=== PATIENT | male | born 1990 | race Two or more races ===

== ENCOUNTER 2020-09-26 19:23 | Emergency (ER) | payer OTHER ==
[~2020-09-26] VITALS: Ht 165.1 cm; Wt 61.0 kg
[2020-09-26 19:30] VITALS: BP 130/73
[2020-09-26] MEDS ORDERED: DIPH,PERTUSS(ACELL),TET VAC/PF 0.5 ML SYRINGE. VAX IM ONE (20:00)
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
[2020-09-26] MEDS ORDERED: HYDROcodone/APAP 5/325MG 1 TAB TABLET PO ONE (20:30)
[2020-09-26] MEDS ORDERED: silver sulfADIAZINE 1% CREAM 25GM TUBE. TP ONE (20:30)
[2020-09-26] MEDS ORDERED: HYDR-3164 PO (20:43)
[2020-09-26] MEDS ORDERED: SILV20CR14 TP (20:43)
--- NOTE | 2020-09-26 21:17 | RAD ---
Examination: 3 views of the right ankle HISTORY: History of fall, pain COMPARISON: None available FINDINGS: The alignment of the ankle mortise grossly appears unremarkable. There is no acute fracture or dislocation identified. Mild soft tissue stranding identified about the ankle mortise. IMPRESSION: No acute osseous findings. Electronically signed by: Keegan Monzon MD (09/26/2020 9:15 PM) [id number]
== END 2020-09-26 20:45 | disposition home or self-care (01) ==
LOC: ER 19:23
DX: T25.211A Burn of second degree of right ankle, initial encounter (principal); S93.401A Sprain of unspecified ligament of right ankle, initial encounter; W01.0XXA Fall on same level from slipping, tripping and stumbling without subsequent striking against object, initial encounter; X19.XXXA Contact with other heat and hot substances, initial encounter; Y93.89 Activity, other specified; Y92.69 Other specified industrial and construction area as the place of occurrence of the external cause; Y99.0 Civilian activity done for income or pay
CPT/HCPCS: 16000; 73610; 90471; 90715; 99283; 99284

== ENCOUNTER 2020-11-05 11:36 | Inpatient (IN) | payer OTHER ==
[~2020-11-05] VITALS: Ht 152.4 cm; Wt 62.1 kg
[~2020-11-05 11:36] MED LIST: HYDR-3164 PO; SILV20CR14 TP
[2020-11-05] MEDS ORDERED: VANCOMYCIN PER PHARMACY MC PRN (12:30)
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
[2020-11-05] MEDS ORDERED: fentaNYL PF VIAL 100 MCG/2 ML VIAL IVP ONE (12:45)
[2020-11-05] MEDS ORDERED: VANCOMYCIN 1.5 GM in IV NORMAL SALINE 500ML BAG 500 ML IV ONE (13:00)
--- NOTE | 2020-11-05 13:09 | RAD ---
3 view study of the right ankle Clinical indications: Infected burn around the ankle. FINDINGS: There is circumferential soft tissue irregularity around the right ankle. Soft tissue air i s apparent especially within the lateral aspect extending towards the right hindfoot. In the lateral view, there is a round density measuring 3.1 cm. This could represent an overlying bandage. No metall ic foreign body is seen. Diffuse mild osteopenia is seen related to disuse. No focal lytic process is seen. No acute fracture or dislocation is evident. The mortise ankle joint is intact. Small plantar spur of the calcaneus is seen. IMPRESSION: No acute fracture. Soft tissue abnormality as discussed above. Soft tissue air may be secondary to open wound/laceration injury or could be seen with soft tissue infection with gas-forming organisms. Electronically signed by: Tyron Dubois MD (11/05/2020 1:00 PM) [id number]
[2020-11-05] MEDS ORDERED: PIPERACILLIN/TAZOBACTAM 3.375 GM in IV NORMAL SALINE 50ML 50 ML IV ONE (13:15)
[2020-11-05] MEDS ORDERED: CLINDAMYCIN 600MG PREMIX 50 ML IV ONE (13:15)
[2020-11-05 13:18] LABS: BASO # 0.1 x10^3/uL (0.0-0.2); BASO % 1 % (0-3); EOS # 0.3 x10^3/uL (0.0-0.7); EOS % 5 % (0-3); HEMATOCRIT 38.9 % (39.0-53.0); HEMOGLOBIN 13.2 g/dL (13.0-17.5); LYMPH # 1.8 x10^3/uL (1.0-4.8); LYMPH % 29 % (24-48); MEAN CORPUSCULAR HEMOGLOBIN 31 pg (25-35); MEAN CORPUSCULAR HGB CONC 34 g/dL (31-37); MEAN CORPUSCULAR VOLUME 90 fL (79-100); MONO # 0.6 x10^3/uL (0.0-1.1); MONO % 9 % (0-9); NEUT # 3.6 x10^3/uL (1.8-7.7); NEUT % 56 % (31-73); PLATELET COUNT 356 x10^3/uL (140-400); RED BLOOD COUNT 4.32 x10^6/uL (4.30-5.70); RED CELL DISTRIBUTION WIDTH 12.4 % (11.5-14.5); WHITE BLOOD COUNT 6.4 x10^3/uL (4.0-11.0)
[2020-11-05 13:36] LABS: CREATININE 0.9 mg/dL (0.7-1.3); GFR 98.4; POTASSIUM 3.8 mmol/L (3.5-5.1)
[2020-11-05 13:38] LABS: ALBUMIN 3.9 g/dL (3.4-5.0); ALBUMIN/GLOBULIN RATIO 1.1 (1.0-1.7); TOTAL BILIRUBIN 0.4 mg/dL (0.2-1.0); TOTAL PROTEIN 7.4 g/dL (6.4-8.2)
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
[2020-11-05] MEDS ORDERED: ONDANSETRON PF 4 MG/2 ML VIAL. IV PRN ×2 (15:00→15:45)
--- NOTE | 2020-11-05 15:29 | PDOC2 ---
CONSULT Date of Consult Date of Consult DATE: 11/05/20 TIME: 15:27 Reason for Consult Reason for Consult: left ankle infected burn wound, need debridement Identification/Chief Complaint Chief Complaint left ankle infected burn wound Source Source: Chart review, Patient History of Present Illness Reason for Visit: Mr Delcid is a 30 year old admitted last night from the ED c/o right ankle pain and swelling with foul smelling drainage. He burned his leg on approximately 09/26/2020, when he fell off a ladder and burned his right ankle on a heater. Since that time, he did get a tetanus shot on the time; had received some antibiotics and Silvadene, but according the ER provider was noncompliant with recommended followup. Over the last few days, it had been getting somewhat better. However, he was instructed by his work to come get it evaluated since he is still off work at this time. He has not been having any fever, chills or sweats. No nausea or vomiting. No diarrhea. He presented to [facility], placed on vancomycin and Zosyn. White count has been normal. X-ray shows some soft tissue abnormality with some air, what may be secondary to open wound or laceration. Currently, he is lying in bed. He is comfortable. Orthopedics was consulted for the infected ankle wound with possible gas on x-ray. Past Surgical History Past Surgical History: Hernia Repair Family History Family History: High Cholestrol, Hypertension Social History No ALCOHOL: none Current Problem List Problem List Problems Medical Problems: (1) Wound infection Status: Acute Current Medications Current Medications Current Medications Vancomycin HCl (Vanco Per Pharmacy) 1 each PRN DAILY PRN MC SEE COMMENTS; Sta rt 11/05/20 at 12:30; Status UNV Fentanyl Citrate (Fentanyl 2ml Vial) 50 mcg 1X ONCE IVP Last administered on 11/05/20at 12:45; Start 11/05/20 at 12:45; Stop 11/05/20 at 12:46; Status DC Vancomycin HCl 1.5 gm/Sodium Chloride 500 ml @ 250 mls/hr 1X ONCE IV Last administered on 11/05/20at 12:54; Start 11/05/20 at 13:00; Stop 11/05/20 at 14:59; Status DC Piperacillin Sod/ Tazobactam Sod 3.375 gm/Sodium Chloride 50 ml @ 100 mls/hr 1X ONCE IV ; Start 11/05/20 at 13:15; Stop 11/05/20 at 13:44; Status DC Clindamycin Phosphate 50 ml @ 100 mls/hr 1X ONCE IV ; Start 11/05/20 at 13:15; Stop 11/05/20 at 13:44; Status DC Ondansetron HCl (Zofran) 4 mg PRN Q8HRS PRN IV NAUSEA/VOMITING; Start 11/05/20 at 15:00; Stop 11/06/20 at 14:59 Fentanyl Citrate (Fentanyl 2ml Vial) 50 mcg PRN Q1HR PRN IV PAIN; Start 11/05/20 at 15:00; Stop 11/06/20 at 14:59 Active Scripts Active [place] 5-325 Tablet (Acetaminophen/Hydrocodone Bitart) 1 Each Tablet 0.5-1 Tab PO PRN Q6HRS PRN Silvadene (Silver Sulfadiazine) 20 Gm Cream..g. 1 Ricardo TP BID 7 Days apply to affected area(s) Allergies Allergies: Coded Allergies: No Known Drug Allergies (Unverified , 09/26/20) Vitals VITALS Vital Signs Date Time Temp Pulse Resp B/P (MAP) Pulse Ox O2 Delivery O2 Flow Rate FiO2 11/05/20 12:45 18 97 Room Air 11/05/20 11:56 98.7 76 135/78 (97) 98.7 Labs Labs Laboratory Tests Test 11/05/20 12:50 White Blood Count 6.4 x10^3/uL (4.0-11.0) Red Blood Count 4.32 x10^6/uL (4.30-5.70) Hemoglobin 13.2 g/dL (13.0-17.5) Hematocrit 38.9 % (39.0-53.0) Mean Corpuscular Volume 90 fL (79-100) Mean Corpuscular Hemoglobin 31 pg (25-35) Mean Corpuscular Hemoglobin Concent 34 g/dL (31-37) Red Cell Distribution Width 12.4 % (11.5-14.5) Platelet Count 356 x10^3/uL (140-400) Neutrophils (%) (Auto) 56 % (31-73) Lymphocytes (%) (Auto) 29 % (24-48) Monocytes (%) (Auto) 9 % (0-9) Eosinophils (%) (Auto) 5 % (0-3) Basophils (%) (Auto) 1 % (0-3) Neutrophils # (Auto) 3.6 x10^3/uL (1.8-7.7) Lymphocytes # (Auto) 1.8 x10^3/uL (1.0-4.8) Monocytes # (Auto) 0.6 x10^3/uL (0.0-1.1) Eosinophils # (Auto) 0.3 x10^3/uL (0.0-0.7) Basophils # (Auto) 0.1 x10^3/uL (0.0-0.2) Sodium Level 139 mmol/L (136-145) Potassium Level 3.8 mmol/L (3.5-5.1) Chloride Level 102 mmol/L (98-107) Carbon Dioxide Level 29 mmol/L (21-32) Anion Gap 8 (6-14) Blood Urea Nitrogen 18 mg/dL (8-26) Creatinine 0.9 mg/dL (0.7-1.3) Estimated GFR (Cockcroft-Gault) 98.4 BUN/Creatinine Ratio 20 (6-20) Glucose Level 113 mg/dL (70-99) Lactic Acid Level 1.6 mmol/L (0.4-2.0) Calcium Level 9.0 mg/dL (8.5-10.1) Total Bilirubin 0.4 mg/dL (0.2-1.0) Aspartate Amino Transf (AST/SGOT) 35 U/L (15-37) Alanine Aminotransferase (ALT/SGPT) 77 U/L (16-63) Alkaline Phosphatase 164 U/L (46-116) Total Protein 7.4 g/dL (6.4-8.2) Albumin 3.9 g/dL (3.4-5.0) Albumin/Globulin Ratio 1.1 (1.0-1.7) Laboratory Tests Test 11/05/20 12:50 White Blood Count 6.4 x10^3/uL (4.0-11.0) Red Blood Count 4.32 x10^6/uL (4.30-5.70) Hemoglobin 13.2 g/dL (13.0-17.5) Hematocrit 38.9 % (39.0-53.0) Mean Corpuscular Volume 90 fL (79-100) Mean Corpuscular Hemoglobin 31 pg (25-35) Mean Corpuscular Hemoglobin Concent 34 g/dL (31-37) Red Cell Distribution Width 12.4 % (11.5-14.5) Platelet Count 356 x10^3/uL (140-400) Neutrophils (%) (Auto) 56 % (31-73) Lymphocytes (%) (Auto) 29 % (24-48) Monocytes (%) (Auto) 9 % (0-9) Eosinophils (%) (Auto) 5 % (0-3) Basophils (%) (Auto) 1 % (0-3) Neutrophils # (Auto) 3.6 x10^3/uL (1.8-7.7) Lymphocytes # (Auto) 1.8 x10^3/uL (1.0-4.8) Monocytes # (Auto) 0.6 x10^3/uL (0.0-1.1) Eosinophils # (Auto) 0.3 x10^3/uL (0.0-0.7) Basophils # (Auto) 0.1 x10^3/uL (0.0-0.2) Sodium Level 139 mmol/L (136-145) Potassium Level 3.8 mmol/L (3.5-5.1) Chloride Level 102 mmol/L (98-107) Carbon Dioxide Level 29 mmol/L (21-32) Anion Gap 8 (6-14) Blood Urea Nitrogen 18 mg/dL (8-26) Creatinine 0.9 mg/dL (0.7-1.3) Estimated GFR (Cockcroft-Gault) 98.4 BUN/Creatinine Ratio 20 (6-20) Glucose Level 113 mg/dL (70-99) Lactic Acid Level 1.6 mmol/L (0.4-2.0) Calcium Level 9.0 mg/dL (8.5-10.1) Total Bilirubin 0.4 mg/dL (0.2-1.0) Aspartate Amino Transf (AST/SGOT) 35 U/L (15-37) Alanine Aminotransferase (ALT/SGPT) 77 U/L (16-63) Alkaline Phosphatase 164 U/L (46-116) Total Protein 7.4 g/dL (6.4-8.2) Albumin 3.9 g/dL (3.4-5.0) Albumin/Globulin Ratio 1.1 (1.0-1.7) Images Images report reviewed, images independently reviewed PATIENT: ANASTASIA NEWMANUNT: [id number] : 1990 LOCATION: ER AGE: 30 SEX: M EXAM STATUS: REG ER ORD. PHYSICIAN: GABO ANGELA APRN REASON: infected burn around the ankle PROCEDURE: ANKLE RIGHT 3V 3 view study of the right ankle Clinical indications: Infected burn around the ankle. FINDINGS: There is circumferential soft tissue irregularity around the right ankle. Soft tissue air is apparent especially within the lateral aspect extending towards the right hindfoot. In the lateral view, there is a round density measuring 3.1 cm. This could represent an overlying bandage. No metallic foreign body is seen. Diffuse mild osteopenia is seen related to disuse. No focal lytic process is seen. No acute fracture or dislocation is evident. The mortise ankle joint is intact. Small plantar spur of the calcaneus is seen. IMPRESSION: No acute fracture. Soft tissue abnormality as discussed above. Soft tissue air may be secondary to open wound/laceration injury or could be seen with soft tissue infection with gas-forming organisms. Electronically signed by: Bree Dubois MD (11/05/2020 1:00 PM) [id number] DICTATED and SIGNED BY: BREE DUBOIS MD DATE: 11/05/20 [id number] Assessment/Plan Assessment/Plan Planning surgical irrigation and debridement in the operating room on 11/06/2020. N.p.o. after midnight. The patient has apparent infected eschar at the areas of the burn wounds. On examination I do not sense that there is any deep abscess. I think the gas bubbles seen on x-ray are probably within the infected eschar. He has good sensation distally and reasonable active range of motion within the limits of the painful eschar without evidence of a deep process. I believe a superficial debridement of the burn eschar which does now appear somewhat infected would be useful, but I do not sense that he needs a deep incision at this time. I can reassess that once we have removed to the foul-smelling infected eschar. I spoke to him about debridement via dictaphone transcriber, removing the infected and nonviable tissue. He agrees to proceed. JACKLYN RESENDIZ MD Nov 05, 2020 15:29
--- NOTE | 2020-11-05 17:58 | NUR ---
Pharmacy Vancomycin Dosing Note S:Consulted to monitor and dose vancomycin started 11/05/20. O:YARED NEWMAN is a 30 year old M with Cellulitis. Height: 5 feet, 3 inches Weight: 59.0 kg [place] Body Weight: 56.90 Adjusted Body Weight: 57.74 Dosing Weight: Actual Other Antibiotics: LABS: Last BUN: 18 Last Creatinine: 0.9 Creatinine Clearance: 97 mL/min Last WBC: 6.4 Tmax (past 24 hours): 98.7 I/O: -- Last dose given 11/05/20 at 1254 Vancomycin Dosing: Loading Dose: 1500 mg x1 Dosing Weight: Actual Target Trough: 10-20 A: Based on: patient's age, weight and renal function. P: 1. Begin Vancomycin 1000 mg IV q12h after initial loading dose. 2. Follow up Trough level on 11/06/20 at 2230 3. Pharmacy will continue to monitor, follow and adjust therapy as needed. THERESA WHITT RPH, 11/05/20 1533
[2020-11-05 19:15] VITALS: BP 121/74
--- NOTE | 2020-11-05 19:33 | NUR ---
Per day shift RN, pt.' arrived on unit at 1800. Pt. is alert and within the company of 2 friends during shift change. Pt. does complain of discomfort in his right foot. Call light is within reach with bed in lowest position. Will continue to monitor.
[2020-11-05] MEDS: fentaNYL PF VIAL 100 MCG/2 ML VIAL IV PRN (19:35)
[2020-11-05] MEDS ORDERED: traMADol 50 MG TABLET PO PRN (20:45)
[2020-11-05] MEDS ORDERED: ACETAMINOPHEN 325 MG TABLET. PO PRN (20:45)
[2020-11-05] MEDS ORDERED: ZOLPIDEM 5 MG TABLET. PO PRN (20:45)
[2020-11-05 23:00] VITALS: BP 106/61
[2020-11-05] MEDS ORDERED: VANCOMYCIN 1 GM in IV NORMAL SALINE 250ML 250 ML IV SCH (23:00)
[2020-11-06] VITALS (11 sets, daily range): BP systolic 94–115; BP diastolic 48–65
[2020-11-06] MEDS: PIPERACILLIN/TAZOBACTAM 3.375 GM in IV NORMAL SALINE 50ML 50 ML IV SCH ×4 (01:38→18:05)
--- NOTE | 2020-11-06 08:15 | PDOC ---
Infectious Disease Note Vital Sign Vital Signs Vital Signs Date Time Temp Pulse Resp B/P (MAP) Pulse Ox O2 Delivery O2 Flow Rate FiO2 11/06/20 07:27 97.7 75 18 111/56 (74) 96 Room Air 97.7 Labs Lab Laboratory Tests Test 11/05/20 12:50 11/05/20 15:25 White Blood Count 6.4 x10^3/uL (4.0-11.0) Red Blood Count 4.32 x10^6/uL (4.30-5.70) Hemoglobin 13.2 g/dL (13.0-17.5) Hematocrit 38.9 % (39.0-53.0) Mean Corpuscular Volume 90 fL (79-100) Mean Corpuscular Hemoglobin 31 pg (25-35) Mean Corpuscular Hemoglobin Concent 34 g/dL (31-37) Red Cell Distribution Width 12.4 % (11.5-14.5) Platelet Count 356 x10^3/uL (140-400) Neutrophils (%) (Auto) 56 % (31-73) Lymphocytes (%) (Auto) 29 % (24-48) Monocytes (%) (Auto) 9 % (0-9) Eosinophils (%) (Auto) 5 % (0-3) Basophils (%) (Auto) 1 % (0-3) Neutrophils # (Auto) 3.6 x10^3/uL (1.8-7.7) Lymphocytes # (Auto) 1.8 x10^3/uL (1.0-4.8) Monocytes # (Auto) 0.6 x10^3/uL (0.0-1.1) Eosinophils # (Auto) 0.3 x10^3/uL (0.0-0.7) Basophils # (Auto) 0.1 x10^3/uL (0.0-0.2) Sodium Level 139 mmol/L (136-145) Potassium Level 3.8 mmol/L (3.5-5.1) Chloride Level 102 mmol/L (98-107) Carbon Dioxide Level 29 mmol/L (21-32) Anion Gap 8 (6-14) Blood Urea Nitrogen 18 mg/dL (8-26) Creatinine 0.9 mg/dL (0.7-1.3) Estimated GFR (Cockcroft-Gault) 98.4 BUN/Creatinine Ratio 20 (6-20) Glucose Level 113 mg/dL (70-99) Lactic Acid Level 1.6 mmol/L (0.4-2.0) Calcium Level 9.0 mg/dL (8.5-10.1) Total Bilirubin 0.4 mg/dL (0.2-1.0) Aspartate Amino Transf (AST/SGOT) 35 U/L (15-37) Alanine Aminotransferase (ALT/SGPT) 77 U/L (16-63) Alkaline Phosphatase 164 U/L (46-116) Total Protein 7.4 g/dL (6.4-8.2) Albumin 3.9 g/dL (3.4-5.0) Albumin/Globulin Ratio 1.1 (1.0-1.7) SARS-CoV-2 Antigen (Rapid) Negative (NEGATIVE) Objective Assessment Right ankle wound h/o burn to ankle Previous tobacco use H/o ETOH abuse Plan Plan of Care Cont Zosyn D/c Vanc Po Zyvox Await Ortho eval F/u labs and cults Local wound care Thank you D/w nursing # [id number] EDIL AGUILAR MD Nov 06, 2020 08:15
--- NOTE | 2020-11-06 08:29 | CONS ---
DATE OF CONSULTATION: 11/06/2020 ROOM: 416. REQUESTING PHYSICIAN: Kirt Small MD REASON FOR CONSULTATION: Leg abscess. HISTORY OF PRESENT ILLNESS: The patient is a pleasant 30-year-old gentleman, who on approximately 09/26/2020, fell off a ladder and burned his right ankle on a heater. Since that time, he did get a tetanus shot on the time; had received some antibiotics. Over the last few days, it had been getting somewhat better. However, he was instructed by his work to come get it evaluated since he is still off work at this time. He has not been having any fever, chills or sweats. No nausea or vomiting. No diarrhea. He presented to [facility], placed on vancomycin and Zosyn. White count has been normal. X-ray shows some soft tissue abnormality with some air, what may be secondary to open wound or laceration. Currently, he is lying in bed. He is comfortable. PAST MEDICAL HISTORY: Positive for the above-mentioned burn. PAST SURGICAL HISTORY: Positive for hernia repair. REVIEW OF SYSTEMS: Otherwise negative. ALLERGIES: No known antibiotic allergies. SOCIAL HISTORY: He states he has not smoked or had any alcohol since he fell off the ladder and burned his ankle. FAMILY HISTORY: Positive for hypertension and hypercholesterolemia. CURRENT MEDICATIONS: Include vancomycin and Zosyn. He did receive clindamycin x 1 and other p.r.n. medications, including fentanyl and Zofran. PHYSICAL EXAMINATION: VITAL SIGNS: Afebrile, temperature is 97.7, pulse 75, respirations 18, blood pressure 111/56. CONSTITUTIONAL: He is lying in bed. He is cooperative, in no acute distress. HEENT: Pupils equal and reactive. Normal conjunctivae. Oral cavity: Pharynx is clear. NECK: Supple. Good range of motion. LUNGS: Clear to auscultation bilaterally. HEART: S1, S2. ABDOMEN: Nontender. No guarding. No rebound. EXTREMITIES: Without clubbing or cyanosis. SKIN: Warm to touch without signs of generalized rash. He has got bilateral scattered lesions on the medial and lateral aspect of his ankle on the right side. He does have good pulses there and there is no gross erythema. There is no warmth. There is no tracking. NEUROLOGIC: He is nonfocal. PSYCHIATRIC: Affect is appropriate. LABORATORY VALUES: White count 6.4, hemoglobin 13.2, platelets of 356, neutrophils 56, lymphs 29. Glucose 113. Lactic acid 1.6. Creatinine 0.9. AST 35, ALT 77, alk phos 164. COVID test was negative. RADIOLOGY: Reviewed in history of present illness. IMPRESSION: 1. Right ankle wound. 2. History of burn to the right ankle. 3. Previous tobacco use. 4. History of alcohol use. RECOMMENDATIONS: Continue Zosyn. Discontinue the vancomycin; begin p.o. Zyvox. Discontinue the tramadol. Await Ortho evaluation. Follow up labs, cultures and local wound care. This was discussed with nursing. Thank you for allowing me to participate in the patient's care. Should you have further questions, please do not hesitate to contact me. EDIL AGUILAR MD DR: DOUG/kulwant JOB#: [id number] / [id number]
[2020-11-06] MEDS: LINEZOLID 600 MG TABLET PO SCH ×2 (09:00→20:52)
[2020-11-06 09:08] LABS: CREATININE 1.1 mg/dL (0.7-1.3); GFR 78.1
[2020-11-06] MEDS: fentaNYL PF VIAL 100 MCG/2 ML VIAL IV PRN ×4 (09:35→13:06)
[2020-11-06] MEDS ORDERED: LIDOCAINE 1% PF 2 ML VIAL. ID PRN (11:15)
[2020-11-06] MEDS ORDERED: fentaNYL PF VIAL 100 MCG/2 ML VIAL IV PRN (11:15)
[2020-11-06] MEDS ORDERED: PROCHLORPERAZINE 10 MG/2 ML VIAL. IV PRN (11:15)
[2020-11-06] MEDS ORDERED: IV RINGERS,LACTATED 1000ML 1,000 ML IV SCH (11:15)
[2020-11-06] MEDS ORDERED: HYDROmorphone 2 MG/ML VIAL IV PRN (11:15)
[2020-11-06] MEDS ORDERED: MORPHINE SULFATE 2 MG/ML VIAL. IV PRN (11:15)
[2020-11-06] MEDS ORDERED: ONDANSETRON PF 4 MG/2 ML VIAL. IV PRN (11:15)
[2020-11-06] MEDS ORDERED: fentaNYL PF VIAL 100 MCG/2 ML VIAL ONE ×3 (11:27→12:45)
[2020-11-06] MEDS ORDERED: BUPIVACAINE-EPI 0.25%-1:200000 MPF 30 ML VIAL. INJ ONE (11:45)
--- NOTE | 2020-11-06 16:23 | PDOC4 ---
Operative Note Operative Note Date of Procedure: November 06, 2020 Pre-Op Diagnosis: Burn of second degree of right ankle, initial encounter T25.A Post-Op Diagnosis: Burn of second degree of right ankle, initial encounter T25.A Procedure: Right ankle debridement of partial-thickness horn, less than 5% total body surface area CPT 39250 Surgeon: Jacklyn Rg MD Anesthesia: General EBL: 10 mL Specimens Obtained: none Complications: none Drains: none Findings: High-grade partial-thickness tissue loss, underlying dermis seems to be intact. Some superficial infected eschar is present but there is no apparent deep infection. Areas of debridement include 7 x 6 cm of the lateral ankle, 6 x 6 cm of the medial ankle, and a 2 cm x 4 cm area of the posterior ankle. No palpable abscess. Indications for Procedure: This patient had an ankle burn at work. He was given Silvadene and instructions for follow-up but apparently was noncompliant. He returned to the emergency room last night with reports of infected ankle wounds. There appears to be superficial infection of the eschar, and need for debridement of the burn wounds in order for healing to occur. I recommended surgical debridement and we discussed the need for ongoing care as well as the risks of ongoing infection or scarring. All of his questions about surgery were answered via a telephone pure culture operator, and he desired to proceed. A written consent was obtained. Procedure in detail: The patient was identified in the preoperative holding area. The correct right ankle was marked by me. He was taken to the operating room where a general anesthetic was used. He remains on scheduled IV antibiotics. No tourniquet was used. The limb was thoroughly circumferentially prepared with Betadine. Sterile drapes were applied. Rongeurs and curettes were used to remove superficial eschar. The underlying dermis is intact but somewhat bloody and pinpoint electrocautery was used carefully to stop the major areas of bleeding without creating any large excessive new horn. Areas of debridement include 7 x 6 cm of the lateral ankle, 6 x 6 cm of the medial ankle, and a 2 cm x 4 cm area of the posterior ankle. No palpable abscesses or deep purulent drainage. Copious saline irrigation was used with a high-pressure water jet, using saline and the [employer] InterPulse train master. After the skin was thoroughly cleansed and all of the nonviable eschar had been removed, the skin was carefully dressed with Xeroform, 4 x 4's, ABDs, soft roll and Colt wrap. Needle and sponge counts were correct. There were no apparent complications. JACKLYN RG MD Nov 06, 2020 16:23
[2020-11-06] MEDS ORDERED: fentaNYL PF VIAL 100 MCG/2 ML VIAL IVP PRN (17:30)
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
[2020-11-06] MEDS: LACTOBACILLUS RHAMNOSUS GG 1 CAPSULE. PO SCH (20:52)
[2020-11-07] MEDS: PIPERACILLIN/TAZOBACTAM 3.375 GM in IV NORMAL SALINE 50ML 50 ML IV SCH ×5 (00:29→23:45)
[2020-11-07 03:09] VITALS: BP 96/49
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
[2020-11-07 07:07] VITALS: BP 99/55
[2020-11-07] MEDS: LINEZOLID 600 MG TABLET PO SCH ×2 (08:55→20:15)
[2020-11-07] MEDS: traMADol 50 MG TABLET PO PRN ×2 (08:55→20:15)
[2020-11-07] MEDS: LACTOBACILLUS RHAMNOSUS GG 1 CAPSULE. PO SCH ×2 (08:55→20:15)
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
[2020-11-07 11:00] VITALS: BP 106/52
[2020-11-07 14:32] VITALS: BP 100/57
[2020-11-07 19:19] VITALS: BP 109/61
[2020-11-07 22:26] VITALS: BP 113/74
[2020-11-08 02:34] VITALS: BP 119/58
[2020-11-08] MEDS: PIPERACILLIN/TAZOBACTAM 3.375 GM in IV NORMAL SALINE 50ML 50 ML IV SCH (05:33)
[2020-11-08 07:00] VITALS: BP 116/67
--- NOTE | 2020-11-08 08:13 | PDOC ---
Infectious Disease Note Subjective: Subjective Patient has minimal pain at the right ankle Overall feeling better Denies fever, nausea, vomiting, diarrhea, abdominal pain, chest pain, shortness of breath or rash Vital Signs: Vital Signs Vital Signs Date Time Temp Pulse Resp B/P (MAP) Pulse Ox O2 Delivery O2 Flow Rate FiO2 11/08/20 07:39 Room Air 11/08/20 07:00 98.1 74 18 116/67 (83) 95 98.1 11/07/20 21:15 10.0 Physical Exam: PHYSICAL EXAM General: Alert oriented x3 male in no acute distress HEENT: Pupils equal and reactive. Normal conjunctivae. Oral cavity: Pharynx is clear. NECK: Supple. Good range of motion. LUNGS: Clear to auscultation bilaterally. HEART: S1, S2. ABDOMEN: Nontender. No guarding. No rebound. EXTREMITIES: Without clubbing or cyanosis. SKIN: Warm to touch without signs of generalized rash. LE wrapped post op. Not taken down Wound pictures reviewed on chart NEUROLOGIC: Alert oriented x3 grossly ,nonfocal. PSYCHIATRIC: Affect is appropriate. Medications: Inpatient Meds: Current Medications Medications (Trade) Dose Ordered Sig/Cristofer Start Time Stop Time Status Last Admin Dose Admin Acetaminophen (Tylenol) 650 mg PRN Q6HRS PRN 11/05/20 20:45 Bupivacaine HCl/ Epinephrine Bitart (Sensorcaine-Epi 0.25%-1:708382 Mpf) 30 ml 1X ONCE 11/06/20 11:45 11/06/20 11:46 DC Clindamycin Phosphate 50 ml @ 100 mls/hr 1X ONCE 11/05/20 13:15 11/05/20 13:44 DC 11/05/20 16:08 100 MLS/HR Fentanyl Citrate (Fentanyl 2ml Vial) 50 mcg PRN Q2HR PRN 11/06/20 17:30 Hydromorphone HCl (Dilaudid) 0.5 mg PRN Q10MIN PRN 11/06/20 11:15 11/07/20 07:44 DC Lactobacillus Rhamnosus (Culturelle) 1 cap BID 11/06/20 21:00 11/07/20 20:15 1 CAP Lidocaine HCl (Xylocaine-Mpf 1% 2ml Vial) 2 ml PRN 1X PRN 11/06/20 11:15 11/07/20 07:44 DC Linezolid (Zyvox) 600 mg BID 11/06/20 09:00 11/07/20 20:15 600 MG Morphine Sulfate (Morphine Sulfate) 1 mg PRN Q10MIN PRN 11/06/20 11:15 11/07/20 07:44 DC Ondansetron HCl (Zofran) 4 mg PRN Q6HRS PRN 11/06/20 11:15 11/07/20 07:44 DC Piperacillin Sod/ Tazobactam Sod 3.375 gm/Sodium Chloride 50 ml @ 100 mls/hr Q6HRS 11/06/20 00:00 11/08/20 05:33 100 MLS/HR Prochlorperazine Edisylate (Compazine) 5 mg PACU PRN PRN 11/06/20 11:15 11/07/20 07:44 DC Ringer's Solution 1,000 ml @ 30 mls/hr Q24H 11/06/20 11:15 11/06/20 23:14 DC 11/06/20 11:18 30 MLS/HR Tramadol HCl (Ultram) 50 mg PRN Q6HRS PRN 11/06/20 17:30 11/07/20 20:15 50 MG Vancomycin HCl (Vanco Per Pharmacy) 1 each PRN DAILY PRN 11/05/20 12:30 11/06/20 08:10 DC 11/05/20 17:57 1 EACH Vancomycin HCl (Vancomycin Trough Level) 1 each 1X ONCE 11/06/20 22:30 11/06/20 08:12 DC Vancomycin HCl 1.5 gm/Sodium Chloride 500 ml @ 250 mls/hr 1X ONCE 11/05/20 13:00 11/05/20 14:59 DC 11/05/20 12:54 250 MLS/HR Vancomycin HCl 1 gm/Sodium Chloride 250 ml @ 250 mls/hr Q12H 11/05/20 23:00 11/06/20 08:10 DC 11/05/20 23:01 250 MLS/HR Zolpidem Tartrate (Ambien) 5 mg PRN QHS PRN 11/05/20 20:45 Labs: Micro RUN DATE: 11/07/20 [facility] *LIVE* PAGE 1 RUN TIME: 1113 Specimen Inquiry PATIENT: YARED NEWMAN ACCT: [id number] LOC: [address] [place] [address] U: [id number] AGE/SX: 30/M ROOM: [facility] RE11/05/[address]: JEANNETTE TRUJILLO MD : 1990 BED: 1 DIS: STATUS: ADM IN TLOC: SPEC #: [id number] LIZZIE: 11/05/20-0 STATUS: RES REQ #: [id number] RECD: 11/05/20-[address]: GABO ANGELA APRN SOURCE: FOOT ENTR: 11/05/20-1234 YARIEL LEON: DAVION KYLE SPDESC: WOUND ORDERED: ANAER/SHANNAN/CONCHITA COMMENTS: Has specimen been collected/obtained? Y Procedure Result GRAM STAIN Final Final GRAM POSITIVE COCCI:FEW SQUAMOUS EPI CELL:NONE SEEN PMN (WBCs):NONE SEEN Unless otherwise specified, Testing Performed by: [address] [address] For Inquires, the Physician may contact the Microbiology department at [phone] ANAEROBIC-AEROBIC CULTURE Preliminary Preliminary MANY GRAM POSITIVE COCCI on 11/06/20 at 1112 FINAL ID= [STAPHYLOCOCCUS AUREUS] STAPHYLOCOCCUS AUREUS ANTIMICROBIAL SUSCEPTIBILITY Preliminary Comment POS ALVINA TYPE 38 STAPHYLOCOCCUS AUREUS ANTIBIOTIC RESULT INTERPRETATION AZITHROMYCIN <=2 S CLINDAMYCIN 0.5 S CEFOXITIN SCREEN <=4 NEG CIPROFLOXACIN <=1 S CEFTAROLINE <=0.5 S DAPTOMYCIN 1 S ERYTHROMYCIN <=0.25 S GENTAMICIN <=4 S LINEZOLID 4 S LEVOFLOXACIN <=1 S OXACILLIN 0.5 S PENICILLIN >2 Rivera RIFAMPIN <=1 S TRIMETHOPRIM/SULFAMETHOXAZOLE <=0.5/9.5 S TETRACYCLINE <=4 S VANCOMYCIN 2 S RUN DATE: 11/07/20 [facility] LAB *LIVE* PAGE 2 RUN TIME: 1113 Specimen Inquiry SPEC: [id number] PATIENT: YARED NEWMAN [id number] (Continued) Procedure Result CONTINUED ON NEXT PAGE RUN DATE: 11/07/20 [facility] *LIVE* PAGE 3 RUN TIME: 1113 Specimen Inquiry SPEC: [id number] PATIENT: YARED NEWMAN [id number] (Continued) Procedure Result ANTIMICROBIAL SUSCEPTIBILITY Preliminary (continued) Unless otherwise specified, Testing Performed by: [address] [address] For Inquires, the Physician may contact the Microbiology department at [phone] Plan: Plan of Care Cont Zosyn Po Zyvox 11/06 F/u labs and cults Local wound care IRMA VERDE MD Nov 08, 2020 08:13
[2020-11-08] MEDS: traMADol 50 MG TABLET PO PRN (08:23)
[2020-11-08] MEDS: LACTOBACILLUS RHAMNOSUS GG 1 CAPSULE. PO SCH ×2 (08:23→21:28)
[2020-11-08] MEDS: LINEZOLID 600 MG TABLET PO SCH (08:23)
--- NOTE | 2020-11-08 10:49 | NUR ---
SW following. Discussed with RN, pt from home, room air, regular diet, COVID-19 negative. 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 SW will continue to follow.
[2020-11-08 11:00] VITALS: BP 106/64
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
[2020-11-08 15:00] VITALS: BP 121/68
[2020-11-08 19:00] VITALS: BP 116/64
[2020-11-08 22:50] VITALS: BP 106/63
[2020-11-09 02:51] VITALS: BP 103/58
[2020-11-09 07:00] VITALS: BP 104/66
[2020-11-09] MEDS: traMADol 50 MG TABLET PO PRN ×2 (07:02→14:24)
[2020-11-09] MEDS: LACTOBACILLUS RHAMNOSUS GG 1 CAPSULE. PO SCH (08:51)
[2020-11-09] MEDS ORDERED: MULTIVITAMIN with MINERAL TABLET. PO SCH (09:00)
--- NOTE | 2020-11-09 09:42 | NUR ---
SW following. Discussed with RN, Cefazolin possibly being switched to a PO abx today for discharge home. RN advised no SW needs at this time. SW will continue to follow.
[2020-11-09 11:00] VITALS: BP 105/56
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
[2020-11-09] MEDS: CEPHALEXIN 250 MG CAPSULE. PO SCH ×2 (14:24→17:31)
[2020-11-09] MEDS ORDERED: CEPH250C PO (14:39)
--- NOTE | 2020-11-09 14:40 | DISCH ---
DISCHARGE INSTRUCTIONS Condition on Discharge Condition on Discharge: Stable Activity After Discharge Activity Instructions for Disc: Activity as tolerated Lifting Instructions after Dis: Do not lift >10 pounds Driving Instructions after Dis: Do not drive today Weight Bearing Status after Di: Partial weight bearing Diet after Discharge Diet after Discharge: Diabetic No Calorie Level Checks after Discharge DC Comment: CBC, CMP Contacting the DR. after DC Call your doctor for: Fever greater than 100 Follow-Up Follow up with: PCP within 2 weeks of discharge Follow Up With: Wound care clinic as scheduled LUKE MARTIN MD Nov 09, 2020 14:40
[2020-11-09 15:00] VITALS: BP 117/66
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
== END 2020-11-09 17:45 | disposition home or self-care (01) | DRG 935 ==
LOC: ER 11:36 → ED HOLD 14:48 → 4 NORTH 17:50
PROVIDERS: ADMIT Internal Medicine; ATTEND Internal Medicine
PROC: 0HBMXZZ Excision of Right Foot Skin, External Approach (ICD-10-PCS; principal; 2020-11-06 11:30)
DX: T25.211A Burn of second degree of right ankle, initial encounter (principal); L03.115 Cellulitis of right lower limb; L02.415 Cutaneous abscess of right lower limb; T31.0 Burns involving less than 10% of body surface; Z20.822 Contact with and (suspected) exposure to COVID-19; Z82.49 Family history of ischemic heart disease and other diseases of the circulatory system; Z87.891 Personal history of nicotine dependence; Z91.19 Patient's noncompliance with other medical treatment and regimen
CPT/HCPCS: 36415; 73610; 80053; 82565; 83605; 85025; 87040; 87071; 87075; 87426; 96365; 96367; 96368; 96375; 99285; J0690; J2405; J2543; J3010; J3370; J3490; J7040; J7050; J7120; U0003; A4461; G0378; J7030